=== PATIENT | female | born 1945 | race African-American/Black ===

== ENCOUNTER 2016-05-28 15:59 | Emergency (ER) | payer MEDICARE ==
[~2016-05-28 15:59] MED LIST: Sodium Chloride 0.9% 1,000 ML BAG ONE; Sodium Chloride 0.9% 100 ML BAG ONE
[2016-05-28] MEDS ORDERED: Insulin Regular 300 UNITS/3 ML VIAL ONE (16:26)
--- NOTE | 2016-05-28 17:00 | RAD ---
PORTABLE CHEST: Date: 05-28-16 Time: 4:40 p.m. History: Uncontrolled diabetes mellitus. FINDINGS: Comparison is made with exam of 09-18-15. The heart size is normal. The aorta is tortuous. No focal areas of consolidation, pneumothorax, fr ank pleural edema, or pleural effusions are seen. IMPRESSION: No radiographic evidence of acute cardiopulmonary process. POS: [facility]
[2016-05-28 17:45] LABS: #Basophils 0.1 thou/uL (0.0-0.2); #Monocytes 0.4 thou/uL (0.11-0.59); #Neutrophils 9.1 thou/uL (1.40-6.50); %Basophils 0.6 % (0.0-1.0); %Lymphocytes 9.5 % (21.0-51.0); %Neutrophils 85.9 % (42.0-75.0); Hemoglobin 12.6 g/dL (12.0-16.0); Mean Corpuscular HGB CONC 30.1 g/dL (32.0-36.0); Mean Corpuscular Hemoglobin 29.7 pg (27.0-31.0); Mean Corpuscular Volume 98.8 fl (81.0-99.0); Mean Platelet Volume 7.8 fL (7.4-10.4); Platelet Count 243 thou/uL (130-400); RBC Distribution Width 15.4 % (11.5-14.5); Red Blood Cell (RBC) Count 4.23 mill/uL (4.20-5.40); White Blood Cell (WBC) Count 10.6 thou/uL (4.8-10.8)
[2016-05-28 17:56] LABS: Hemoglobin A1c 14.5 % (4.0-6.0)
[2016-05-28 18:05] LABS: CKMB 2.1 ng/mL (0-6.6); Troponin I Less than 0.010 ng/mL (< 0.028)
[2016-05-28 18:11] LABS: Blood, Urine Trace (Negative); Glucose, Urine (Dipstick) 500 mg/dL (Negative); Leukocyte Negative (Negative); Nitrite Negative (Negative); Protein, Urine (Dipstick) 100 mg/dL (Neg-Trace); Specific Gravity, Urine 1.025 (1.005-1.030); Urobilinogen 0.2 mg/dL (0.2-1.0)
[2016-05-28 18:12] LABS: Bacteria/HPF 1+ HPF (None Seen); Bilirubin Negative (Negative); Clarity Hazy (Clear); Icto Negative (Negative); RBC/HPF 0-3 HPF (0-3); Squamous Epithelial 0-3 HPF (0-3)
[2016-05-28 18:55] LABS: ALT (SGPT) 14 U/L (0-55); AST (SGOT) 8 U/L (5-34); Albumin 3.6 g/dL (3.4-4.8); Alkaline Phosphatase 108 U/L (40-150); BUN (Urea Nitrogen) 31 mg/dL (9.8-20.1); Bilirubin, Total Less than 0.3 mg/dL (0.2-1.2); Calc. Creatinine Clearance 0 mL/min (70-130); Calcium 8.8 mg/dL (7.8-10.44); Chloride 106 mmol/L (98-107); Estimated GFR-MDRD 37; Globulin 3.1 g/dL (2.4-3.5); Glucose 485 mg/dL (80-115); Potassium 4.7 mmol/L (3.5-5.1); Protein, Total 6.7 g/dL (5.8-8.1); Sodium 137 mmol/L (136-145)
[2016-05-28 18:59] LABS: Carbon Dioxide Less than 8 mmol/L (23-31)
[2016-05-28 19:15] LABS: Base Excess -18.8 mEq/L (-2 - +2); Hemoglobin (Hb) 13.3 g/dL (11.7-16.1)
== END 2016-05-28 21:20 | disposition short-term general hospital (02) ==
LOC: MADERS 15:59
DX: E11.65 Type 2 diabetes mellitus with hyperglycemia (principal); E87.8 Other disorders of electrolyte and fluid balance, not elsewhere classified; E78.5 Hyperlipidemia, unspecified; E78.00 Pure hypercholesterolemia, unspecified; I10 Essential (primary) hypertension; Z79.4 Long term (current) use of insulin; Z79.84 Long term (current) use of oral hypoglycemic drugs
CPT/HCPCS: 36415; 36416; 51702; 71010; 80053; 81003; 81015; 82553; 82805; 83036; 84484; 85025; 87040; 87086; 87149; 93005; 96360; 96361; 96365; 96366; 96376; J1815; J7050

== ENCOUNTER 2016-06-25 14:04 | Emergency (ER) | payer MEDICARE ==
[2016-06-25 14:59] LABS: Bilirubin Negative (Negative); Blood, Urine Trace (Negative); Clarity Clear (Clear); Glucose, Urine (Dipstick) 500 mg/dL (Negative); Leukocyte Negative (Negative); Nitrite Negative (Negative); Protein, Urine (Dipstick) 100 mg/dL (Neg-Trace); Urobilinogen 0.2 mg/dL (0.2-1.0); pH, Urine 5.5 (5.0-9.0)
[2016-06-25 15:00] LABS: Bacteria/HPF Rare-Few HPF (None Seen); Squamous Epithelial 0-3 HPF (0-3); WBC/HPF 0-3 HPF (0-3)
--- NOTE | 2016-06-25 15:06 | RAD ---
UPRIGHT PORTABLE CHEST: History: 70-year-old female with elevated blood sugar. Comparison: 05-28-16 FINDINGS: Poor inspiration, worse than on prior study, with some vascular crowding in the lung bases. Atheros clerotic ectatic changes of the aorta. No confluent pneumonia. No pleural effusion or overt edema. IMPRESSION: Poor inspiratory effort, worse than on the 05-28-16 study with some vascular crowding and some increas ed markings in the infrahilar regions bilaterally without confluent pneumonia, overt edema, or pleur al effusion. Consider follow up upright PA and lateral chest whenever the patient can undergo that study. POS: [facility]
[2016-06-25] MEDS ORDERED: Insulin Regular 300 UNITS/3 ML VIAL ONE (15:17)
[2016-06-25 15:21] LABS: #Basophils 0.1 thou/uL (0.0-0.2); #Eosinphils 0.1 thou/uL (0.0-0.7); #Lymphocytes 1.9 thou/uL (1.20-3.40); #Monocytes 0.5 thou/uL (0.11-0.59); #Neutrophils 4.5 thou/uL (1.40-6.50); %Basophils 1.4 % (0.0-1.0); %Eosinophils 0.8 % (0.0-10.0); %Monocytes 6.7 % (0.0-10.0); %Neutrophils 64.2 % (42.0-75.0); Hemoglobin 9.9 g/dL (12.0-16.0); Mean Corpuscular HGB CONC 30.8 g/dL (32.0-36.0); Mean Corpuscular Hemoglobin 29.5 pg (27.0-31.0); Mean Corpuscular Volume 95.6 fl (81.0-99.0); Mean Platelet Volume 7.7 fL (7.4-10.4); Platelet Count 325 thou/uL (130-400); RBC Distribution Width 15.2 % (11.5-14.5); Red Blood Cell (RBC) Count 3.36 mill/uL (4.20-5.40); White Blood Cell (WBC) Count 7.1 thou/uL (4.8-10.8)
[2016-06-25 15:42] LABS: CKMB 1.7 ng/mL (0-6.6); Troponin I Less than 0.010 ng/mL (< 0.028)
[2016-06-25 15:45] LABS: ALT (SGPT) 12 U/L (0-55); AST (SGOT) 12 U/L (5-34); Albumin 3.9 g/dL (3.4-4.8); Alkaline Phosphatase 103 U/L (40-150); Anion Gap 22 mmol/L (10-20); BUN (Urea Nitrogen) 32 mg/dL (9.8-20.1); Bilirubin, Total 0.4 mg/dL (0.2-1.2); CK (CPK) 55 U/L (29-168); Calc. Creatinine Clearance 0 mL/min (70-130); Calcium 9.1 mg/dL (7.8-10.44); Carbon Dioxide 21 mmol/L (23-31); Chloride 89 mmol/L (98-107); Estimated GFR-MDRD 46; Globulin 3.1 g/dL (2.4-3.5); Potassium 4.7 mmol/L (3.5-5.1); Sodium 127 mmol/L (136-145)
[2016-06-25 15:49] LABS: Glucose 595 mg/dL (80-115)
== END 2016-06-25 19:30 | disposition home or self-care (01) ==
LOC: MADERS 14:04
DX: E11.65 Type 2 diabetes mellitus with hyperglycemia (principal); E78.5 Hyperlipidemia, unspecified; E78.00 Pure hypercholesterolemia, unspecified; I10 Essential (primary) hypertension; Z79.4 Long term (current) use of insulin; Z79.84 Long term (current) use of oral hypoglycemic drugs
CPT/HCPCS: 36416; 71010; 80053; 81003; 81015; 82553; 83880; 84484; 85025; 87086; 93005; 96365; 96366; 96376; J1815; J7050

== ENCOUNTER 2016-08-06 12:35 | Emergency (ER) | payer MEDICARE ==
[2016-08-06 13:16] LABS: #Basophils 0.1 thou/uL (0.0-0.2); #Monocytes 0.6 thou/uL (0.11-0.59); #Neutrophils 10.7 thou/uL (1.40-6.50); %Basophils 0.9 % (0.0-1.0); %Lymphocytes 8.1 % (21.0-51.0); %Monocytes 4.8 % (0.0-10.0); Hemoglobin 12.9 g/dL (12.0-16.0); Mean Corpuscular HGB CONC 29.4 g/dL (32.0-36.0); Mean Corpuscular Hemoglobin 29.3 pg (27.0-31.0); Mean Corpuscular Volume 99.6 fl (81.0-99.0); Mean Platelet Volume 7.2 fL (7.4-10.4); Platelet Count 340 thou/uL (130-400); RBC Distribution Width 15.2 % (11.5-14.5); Red Blood Cell (RBC) Count 4.41 mill/uL (4.20-5.40); White Blood Cell (WBC) Count 12.4 thou/uL (4.8-10.8)
[2016-08-06] MEDS ORDERED: Ondansetron HCl/PF 4 MG/2 ML Vial ONE (13:29)
[2016-08-06 13:35] LABS: ALT (SGPT) 18 U/L (0-55); AST (SGOT) 15 U/L (5-34); Albumin 4.2 g/dL (3.4-4.8); Alkaline Phosphatase 118 U/L (40-150); BUN (Urea Nitrogen) 37 mg/dL (9.8-20.1); Bilirubin, Total Less than 0.3 mg/dL (0.2-1.2); Calc. Creatinine Clearance 0 mL/min (70-130); Calcium 9.4 mg/dL (7.8-10.44); Carbon Dioxide Less than 8 mmol/L (23-31); Chloride 95 mmol/L (98-107); Estimated GFR-MDRD 26; Globulin 3.4 g/dL (2.4-3.5); Glucose 762 mg/dL (80-115); Potassium 6.3 mmol/L (3.5-5.1); Protein, Total 7.6 g/dL (5.8-8.1); Sodium 125 mmol/L (136-145)
[2016-08-06] MEDS ORDERED: Insulin Regular 300 UNITS/3 ML VIAL ONE (13:44)
[2016-08-06 14:10] LABS: CKMB 3.6 ng/mL (0-6.6)
[2016-08-06 14:26] LABS: Troponin I 0.015 ng/mL (< 0.028)
--- NOTE | 2016-08-06 14:45 | RAD ---
PA AND LATERAL CHEST: Date: 08-06-16 History: Fever. Comparison: 06-25-16 FINDINGS: The cardiac silhouette and pulmonary vasculature are within normal limits. Thoracic aorta is ectatic . There are nodular densities projecting over each lung base most suggestive of nipple shadows. Lung s are otherwise clear. There is prominent gaseous distention of the stomach. Prominent degenerative changes are again present in the spine. IMPRESSION: No acute cardiopulmonary process. POS: [facility]
== END 2016-08-06 15:04 | disposition short-term general hospital (02) ==
LOC: MADERS 12:35
DX: E13.10 Other specified diabetes mellitus with ketoacidosis without coma (principal); N28.9 Disorder of kidney and ureter, unspecified; E78.5 Hyperlipidemia, unspecified; I10 Essential (primary) hypertension
CPT/HCPCS: 71020; 80053; 82553; 84484; 85025; 93005; 96361; 96365; 96375; 96376; J1815; J2405; J7050